=== PATIENT | male | born 1980 | race Caucasian/White ===

== ENCOUNTER 2023-03-17 06:49 | Day surgery (SDC) | payer BC ==
[2023-03-16 11:16] VITALS: BMI 42.0
[2023-03-17] MEDS ORDERED: VANCOMYCIN 2 GRAM/500 ML BAG 2 GM in Premix Bag 1 BAG IVPB SCH (07:45)
[2023-03-17] MEDS ORDERED: Midazolam HCl 2 mg/2 ml Vial ONE (07:52)
[2023-03-17] MEDS ORDERED: Ropivacaine 0.5% HCl/PF (150 MG/30 ML VIAL) ONE (07:52)
[2023-03-17] MEDS ORDERED: Ropivacaine 0.2% HCl/PF 20 ML ONE (07:52)
[2023-03-17] MEDS ORDERED: fentaNYL 50 mcg/mL 1 mL Vial ONE (07:52)
[2023-03-17 08:10] LABS: #Eosinphils 0.1 thou/uL (0.0-0.7); #Monocytes 0.4 thou/uL (0.11-0.59); #Neutrophils 4.6 thou/uL (1.40-6.50); %Basophils 0.6 % (0.0-1.0); %Eosinophils 2.1 % (0.0-10.0); %Monocytes 5.5 % (0.0-10.0); %Neutrophils 68.8 % (42.0-75.0); Hematocrit 45.7 % (42.0-52.0); Hemoglobin 14.7 g/dL (14.0-18.0); Mean Corpuscular HGB CONC 32.2 g/dL (32.0-36.0); Mean Corpuscular Hemoglobin 26.4 pg (27.0-31.0); Mean Corpuscular Volume 82.2 fl (78.0-98.0); Platelet Count 273 10x3/uL (130-400); RBC Distribution Width 13.4 % (11.5-14.5); Red Blood Cell (RBC) Count 5.56 mill/uL (4.70-6.10); White Blood Cell (WBC) Count 6.7 10x3/uL (4.8-10.8)
[2023-03-17 08:36] LABS: Anion Gap 13 mmol/L (10-20); BUN (Urea Nitrogen) 19 mg/dL (8.9-20.6); Calc. Creatinine Clearance 170 mL/min (70-130); Calcium 9.9 mg/dL (7.8-10.44); Carbon Dioxide 25 mmol/L (22-29); Chloride 106 mmol/L (98-107); Estimated GFR 74; Glucose 106 mg/dL (70-105); Potassium 4.4 mmol/L (3.5-5.1); Sodium 140 mmol/L (136-145)
[2023-03-17] MEDS ORDERED: Sodium Chloride 0.9% 100 ML ONE (08:40)
[2023-03-17] MEDS ORDERED: CEFAZOLIN 2 GM VIAL ONE (08:40)
[2023-03-17] MEDS ORDERED: fentaNYL PF 100 MCG/2 ML SYRINGE ONE (08:47)
[2023-03-17] MEDS ORDERED: EPINEPHrine 1 MG/ML AMP ONE (09:00)
[2023-03-17] MEDS ORDERED: Lidocaine 1% (PF) 30 ML VIAL ONE (09:00)
[2023-03-17] MEDS ORDERED: traMADol HCl 50 MG TAB PO PRN ×2 (09:15)
[2023-03-17] MEDS ORDERED: Ondansetron PF 4 MG/2 ML Vial IVP PRN (09:15)
[2023-03-17] MEDS ORDERED: HYDROcodone/Acetaminophen 10/325 mg Tablet PO PRN ×2 (09:15)
[2023-03-17] MEDS ORDERED: Ropivacaine 0.2% 550 ML 550 ML NERVE BLCK SCH (09:15)
[2023-03-17] MEDS ORDERED: Zolpidem Tartrate 5 MG TAB PO PRN (09:15)
[2023-03-17] MEDS ORDERED: Promethazine HCl 25 MG/ML VIAL IM PRN (09:15)
[2023-03-17] MEDS ORDERED: NEOSTIGMINE 3 MG/3 ML SYR 3 MG/3 ML SYRINGE ONE (09:25)
[2023-03-17] MEDS ORDERED: Rocuronium Bromide 10 MG/ML (10ML VIAL) ONE (09:25)
[2023-03-17] MEDS ORDERED: PROPOFOL 200 MG/20 ML VIAL ONE (09:25)
[2023-03-17] MEDS ORDERED: Ondansetron PF 4 MG/2 ML Vial ONE (09:25)
[2023-03-17] MEDS ORDERED: Glycopyrrolate 0.2 MG/ML 5 ML SYRINGE ONE (09:25)
[2023-03-17] MEDS ORDERED: Ketorolac Tromethamine 30 MG/ML VIAL IVP SCH (12:00)
== END 2023-03-17 14:18 | disposition home or self-care (01) ==
LOC: SDC 06:49
PROVIDERS: ATTEND Orthopaedic Surgery
PROC: 0PT90ZZ Resection of Right Clavicle, Open Approach (ICD-10-PCS; principal; 2023-03-17)
PROC: 0LS30ZZ Reposition Right Upper Arm Tendon, Open Approach (ICD-10-PCS; principal; 2023-03-17)
PROC: 0RNJ4ZZ Release Right Shoulder Joint, Percutaneous Endoscopic Approach (ICD-10-PCS; principal; 2023-03-17)
DX: S43.431A Superior glenoid labrum lesion of right shoulder, initial encounter (principal); M25.811 Other specified joint disorders, right shoulder; M25.311 Other instability, right shoulder; M89.511 Osteolysis, right shoulder; I10 Essential (primary) hypertension; E78.5 Hyperlipidemia, unspecified; J45.909 Unspecified asthma, uncomplicated; G47.33 Obstructive sleep apnea (adult) (pediatric); Z79.899 Other long term (current) drug therapy; Z88.8 Allergy status to other drugs, medicaments and biological substances; X58.XXXA Exposure to other specified factors, initial encounter
CPT/HCPCS: 80048; 85025; A4306; C1713; J0171; J2001; J2250; J2405; J2704; J2795; J3010; J3370; J3490